=== PATIENT | male | born 2000 | race Caucasian/White ===

== ENCOUNTER 2023-02-13 10:48 | Emergency (ER) | payer BC, SELFPAY ==
[2023-02-13] VITALS (9 sets, daily range): BP systolic 137–150; BP diastolic 80–92; PULSE 57–72; RESP 12–18; TEMP 36.8; O2SAT 97–100; BMI 22.4
--- NOTE | 2023-02-13 11:08 | XR_ITS ---
The [address] [address] Patient Name: RAKEL TERAN MRN: [id number] date: 2000 Sex: M Assigned Patient Location: ER Current Patient Location: ER Accession/Order Number: [id number] Exam Date: 02/13/2023 11:18 Report Date: 02/13/2023 11:31 At the request of: KARIS RICHARDSON Procedure: XR chest 1V EXAMINATION: XR chest 1V 02/13/2023 8:30 AM PDT HISTORY: SOB TECHNIQUE: Single frontal view of the chest acquired. COMPARISONS: None. FINDINGS: Lines/tubes/other: None. Heart and mediastinum: The heart and the mediastinum are within normal limits for technique. Bones: No acute osseous abnormality. Lungs: The lungs are clear. There is no evidence of pneumonia or pulmonary edema. Pleura: There is no significant pleural effusion or pneumothorax. Other: None. IMPRESSION: Normal radiograph of the chest. Electronically authenticated by: RACHANA PEARSON Date: 02/13/2023 11:31
--- NOTE | 2023-02-13 11:09 | ECG_ITS ---
The [facility] Test Date: 2023-02-13 Pat Name: RAKEL TERAN Department: Room: - Gender: Male [employer]: : 2000 Requested By: Order Number: [id number] Reading MD: TABATHA CLANCY Measurements Intervals [place] Rate: 66 P: 69 ID: [id number] QRS: 86 QRSD: 102 T: 68 QT: 414 QTc: 428 Interpretive Statements 1100 Sinus rhythm 9110 normal ECG No previous ECG available for comparison Electronically Signed On 02-13-2023 19:47:32 EDT by TABATHA CLANCY
--- NOTE | 2023-02-13 11:10 | ED.DIZZY1 ---
HPI - Dizziness General Chief Complaint: Dizziness Stated Complaint: GENERAL WEAKNESS Time Seen by Provider: 02/13/23 10:59 Source: patient Source comment: PATIENT Mode of arrival: walk-in Limitations: no limitations History of Present Illness HPI Narrative: 22-year-old male presents for dizziness. He's had it intermittently for about five or six days. It's seemed to start after a workout. He's had intermittent lightheadedness and he's been trying to keep up with his fluids. No palpitations or syncope. He's waiting for [facility] very soon and wanted to get checked out before he left. He doesn't complain of chest pain or abdominal pain. He's had no diarrhea or fever. Related Data Allergies Allergy/AdvReac Type Severity Reaction Status Date / Time ibuprofen Allergy Mild Verified 02/13/23 10:58 Review of Systems ROS Narrative A ten point review of systems is negative except as noted above. PFSH PFSH Social History Smoking status: Never smoker Exam Narrative Exam Narrative: Nurses note and vital signs reviewed and patient is not hypoxic. General: The patient appears well and in no apparent distress. Patient is resting comfortably on cart. Skin: Warm, dry, no pallor noted. There is no rash noted. Head: Normocephalic, atraumatic Eye: Normal conjunctiva, no drainage Ears, Nose, Mouth, and Throat: oral mucosa is moist. Nares patent. Cardiovascular: Regular Rate and Rhythm Respiratory: Patient is in no distress, no accessory muscle use, lungs are clear to auscultation, no wheezing, rales or rhonchi Back: non-tender GI: no tenderness to palpation, no masses appreciated. No rebound, guarding, or rigidity noted. Musculoskeletal: The patient has no evidence of calf tenderness, no pitting edema, symmetrical pulses noted bilaterally Neurological: A&O, normal speech Psychiatric: Cooperative Constitutional Vital Signs - 24 hr 02/13/23 10:53 02/13/23 11:06 02/13/23 11:21 Temperature 98.3 F Pulse Rate 67 Pulse Rate [Monitor] 68 Respiratory Rate 18 15 Blood Pressure 150/80 H 141/87 H Pulse Oximetry 99 98 Oxygen Delivery Method Room Air 02/13/23 11:21 02/13/23 11:30 Temperature Pulse Rate 65 70 Pulse Rate [Monitor] Respiratory Rate 13 13 Blood Pressure 141/87 H 137/92 H Pulse Oximetry 99 98 Oxygen Delivery Method Course Vital Signs Vital signs: Vital Signs Temperature 98.3 F 02/13/23 10:53 Pulse Rate 68 02/13/23 10:53 Respiratory Rate 18 02/13/23 10:53 Pulse Oximetry 99 02/13/23 10:53 Oxygen Delivery Method Room Air 02/13/23 10:53 Temperature 98.3 F 02/13/23 10:53 Pulse Rate 70 02/13/23 11:30 Respiratory Rate 13 02/13/23 11:30 Blood Pressure 137/92 H 02/13/23 11:30 Pulse Oximetry 98 02/13/23 11:30 Oxygen Delivery Method Room Air 02/13/23 10:53 MDM - Dizziness MDM Narrative Medical decision making narrative: CBC, BMP, chest x-ray, and EKG are all negative. He was given IV fluids. Findings are discussed with the patient and he'll follow-up with his doctor if symptoms persist. Treatment diagnosis and follow-up were discussed with the patient. Differential Diagnosis Differential diagnosis: Likely benign paroxysmal positional vertigo, orthostatic hypotension and other (dehydration, anemia) Lab Data Attestation: I reviewed the patient's lab results. Labs: Lab Results 02/13/23 Range/Units 11:17 WBC 5.2 (4.0-11.0) 10^3/uL RBC 5.70 (4.70-6.10) 10^6/uL Hgb 16.1 (14.0-18.0) g/dL Hct 46.5 (42.0-54.0) % MCV 81.6 (80.0-94.0) fL MCH 28.2 (25.9-34.0) pg MCHC 34.6 (29.9-35.2) g/dL RDW 13.1 (11.0-15.0) % Plt Count 192 (150-450) 10^3/uL MPV 11.0 (9.5-13.5) fL Neut % (Auto) 66.4 (43.0-75.0) % Lymph % (Auto) 20.8 (20.5-60.0) % [place] % (Auto) 9.7 (1.7-12.0) % Eos % (Auto) 2.3 (0.9-7.0) % Baso % (Auto) 0.6 (0.2-2.0) % Neut # (Auto) 3.4 (1.4-6.5) 10^3/uL Lymph # (Auto) 1.1 L (1.2-3.8) 10^3/uL [place] # (Auto) 0.5 (0.3-0.8) 10^3/uL Eos # (Auto) 0.1 (0.0-0.7) 10^3/uL Baso # (Auto) 0.0 (0.0-0.1) 10^3/uL Abs Immat Gran (auto) 0.01 (0.00-0.03) 10^3/uL Imm/Tot Granulo (auto) 0.2 (0.0-0.5) % Sodium 137 (136-145) mmol/L Potassium 4.3 (3.5-5.1) mmol/L Chloride 100 (98-107) mmol/L Carbon Dioxide 26.5 (21.0-32.0) mmol/L Anion Gap 14.8 BUN 11.0 (7.0-18.0) mg/dL Creatinine 0.94 (0.70-1.30) mg/dL BUN/Creatinine Ratio 11.7 Glucose 97 (74-106) mg/dL Calcium 9.6 (8.5-10.1) mg/dL ECG Data Attestation: I personally reviewed and interpreted this ECG as follows: (EKG on my interpretation shows sinus rhythm with rate of 66 and no acute changes.) Discharge Plan Discharge Chief Complaint: Dizziness Clinical Impression: Dizziness Patient Disposition: Home, Self-Care Time of Disposition Decision: 12:12 Condition: Good Mode of Transportation: Private Vehicle Instructions: Dizziness (ED) Stand Alone Forms: Portal Instructions
[2023-02-13] MEDS: 0.9 % SODIUM CHLORIDE 1,000 ML 1000 ML IV (11:20)
[2023-02-13 11:29] LABS: Basophils Percent Auto 0.6 % (0.2-2.0); Eosinophils Absolute Auto 0.1 10^3/uL (0.0-0.7); Eosinophils Percent Auto 2.3 % (0.9-7.0); Hematocrit 46.5 % (42.0-54.0); Hemoglobin 16.1 g/dL (14.0-18.0); Immature Granulocytes Abs Auto 0.01 10^3/uL (0.00-0.03); Immature Granulocytes Pct Auto 0.2 % (0.0-0.5); Lymphocytes Absolute Auto 1.1 10^3/uL (1.2-3.8); Lymphocytes Percent Auto 20.8 % (20.5-60.0); Mean Corpuscular HGB Conc 34.6 g/dL (29.9-35.2); Mean Corpuscular Hemoglobin 28.2 pg (25.9-34.0); Mean Corpuscular Volume 81.6 fL (80.0-94.0); Monocytes Absolute Auto 0.5 10^3/uL (0.3-0.8); Monocytes Percent Auto 9.7 % (1.7-12.0); Neutrophils Absolute Auto 3.4 10^3/uL (1.4-6.5); Neutrophils Percent Auto 66.4 % (43.0-75.0); Platelet Count 192 10^3/uL (150-450); Red Cell Distribution Width 13.1 % (11.0-15.0); White Blood Count 5.2 10^3/uL (4.0-11.0)
[2023-02-13 11:40] LABS: Anion Gap 14.8; BUN Creatinine Ratio 11.7; Calcium 9.6 mg/dL (8.5-10.1); Carbon Dioxide 26.5 mmol/L (21.0-32.0); Chloride 100 mmol/L (98-107); Glucose 97 mg/dL (74-106); Potassium 4.3 mmol/L (3.5-5.1); Sodium 137 mmol/L (136-145)
== END 2023-02-13 12:19 | disposition home or self-care (01) ==
PROVIDERS: Emergency Provider Emergency Medicine
DX: R42 Dizziness and giddiness (principal)
CPT/HCPCS: 36415; 71045; 80048; 85025; 93005; 99285